=== PATIENT | female | born 1970 | race Hispanic/Latino ===

== ENCOUNTER 2019-02-19 14:17 | Outpatient (CLI) | payer OTHER ==
--- NOTE | 2019-02-19 15:01 | MMO ---
Bilateral MAMMO Bilat Screen [facility]. CLINICAL HISTORY: Patient is 48 years old and is seen for screening. The patient has no family history of breast cancer. The patient has no personal history of cancer. VIEWS: The views performed were: bilateral craniocaudal with tomosynthesis and bilateral mediolateral oblique with tomosynthesis. FILMS COMPARED: The present examination has been compared to a prior imaging study performed at [facility] on 11/22/2011. MAMMOGRAM FINDINGS: The breasts are heterogeneously dense, which could obscure a lesion on mammography. There is a new cluster of calcifications in the left upper outer breast. In the right breast, there are no suspicious masses, calcifications or areas of architectural distortion. IMPRESSION: FINDING IN THE LEFT BREAST REQUIRES ADDITIONAL EVALUATION. MAGNIFICATION VIEWS ARE RECOMMENDED. THE RESULTS OF THIS EXAM WERE SENT TO THE PATIENT. ACR BI-RADS Category 0 - Incomplete: Need additional imaging evaluation. [facility] will notify the patient of the need for additional imaging services. MAMMOGRAPHY NOTE: 1. A negative mammogram report should not delay a biopsy if a dominant of clinically suspicious mass is present. 2. Approximately 10% to 15% of breast cancers are not detected by mammography. 3. Adenosis and dense breasts may obscure an underlying neoplasm. Reported by: ANA CANALES MD Electonically Signed: [id number]
== END 2019-02-19 14:18 | disposition home or self-care (01) ==
LOC: BICMAMMO 14:17
PROVIDERS: ATTEND Family Medicine
DX: Z12.31 Encounter for screening mammogram for malignant neoplasm of breast (principal)
CPT/HCPCS: 77063; 77067

== ENCOUNTER 2019-03-01 14:43 | Outpatient (CLI) | payer OTHER ==
--- NOTE | 2019-03-01 16:00 | MMO ---
Left Breast MAMMO Unilat Diag [facility]. CLINICAL HISTORY: Patient is 48 years old and is seen for additional evaluation requested from prior study. The patient has no family history of breast cancer. The patient has no personal history of cancer. VIEWS: The views performed were: left craniocaudal spot compression magnification; left mediolateral spot compression magnification; and left mediolateral with tomosynthesis. FILMS COMPARED: The present examination has been compared to prior imaging studies performed at [facility] on 11/22/2011, 02/19/2019 and 03/01/2019. MAMMOGRAM FINDINGS: The breast is heterogeneously dense, which could obscure a lesion on mammography. There are coarse heterogeneous and fine pleomorphic calcifications with grouped or clustered distribution seen in the middle upper-inner region of the left breast. IMPRESSION: CALCIFICATIONS IN THE LEFT BREAST ARE SUSPICIOUS. NEEDLE LOCALIZATION AND BIOPSY ARE RECOMMENDED. THE FINDINGS AND RECOMMENDATIONS WERE DISCUSSED WITH THE PATIENT PRIOR TO HER LEAVING THE CENTER. DR. SANCHEZ AT THE OFFICE OF THE PATIENT'S REFERRING PHYSICIAN, KARINA SANCHEZ, WAS NOTIFIED OF THE EXAM RESULTS BY TELEPHONE ON 3:55 PM ON 03/01/2019. THE RESULTS OF THIS EXAM WERE SENT TO THE PATIENT. ACR BI-RADS Category 4 - Suspicious abnormality - biopsy should be considered MAMMOGRAPHY NOTE: 1. A negative mammogram report should not delay a biopsy if a dominant of clinically suspicious mass is present. 2. Approximately 10% to 15% of breast cancers are not detected by mammography. 3. Adenosis and dense breasts may obscure an underlying neoplasm. Reported by: ASHLEY RODRIGUEZ MD Electonically Signed: [id number]
--- NOTE | 2019-03-01 16:02 | ULT ---
LEFT BREAST DIAGNOSTIC ULTRASOUND: 03/01/19 INDICATION: Suspicious cluster of calcifications within the upper outer aspect of the left breast. Ultrasound was performed to evaluate for possible adjacent soft tissue mass. FINDINGS: Simental scale and color Doppler images demonstrate the cluster of shadowing calcifications within the le ft breast 1:30 position 4 cm from the nipple. The suspicious cluster measures approximately 8 mm in w idth and 5 mm in its greatest longitudinal dimension. Depth paige, the cluster measures approximately 6 mm. IMPRESSION: BI-RADS 4: Suspicious Abnormality - Biopsy Should Be Considered Usually requires biopsy. Details concerning the biopsy were fully discussed with the patient concerning possible ultrasound gu ided core biopsy, stereotactic breast biopsy and needle localization with surgical excision. Due to t he size of the patient's left breast and conspicuity of the calcifications by mammogram, recommend th is patient undergo needle localization with surgical excision. Findings were discussed with The patient as well as Dr. Manning by phone at 3:55 p.m. on 03/01/19. Code CR POS: OFF
== END 2019-03-01 14:44 | disposition home or self-care (01) ==
LOC: BICMAMMO 14:43
PROVIDERS: ATTEND Family Medicine
DX: R92.1 Mammographic calcification found on diagnostic imaging of breast (principal)
CPT/HCPCS: G0279

== ENCOUNTER 2019-03-21 07:05 | Day surgery (SDC) | payer OTHER ==
[2019-03-20 17:48] VITALS: BMI 19.2
[2019-03-21] MEDS ORDERED: Lidocaine 1% PF 5 ML VIAL ONE (12:00)
[2019-03-21] MEDS ORDERED: PROPOFOL 200 MG/20 ML VIAL ONE (12:00)
--- NOTE | 2019-03-21 14:20 | MMO ---
MAMMOGRAPHICALLY GUIDED NEEDLE LOCALIZATION 03/21/19 HISTORY: Left breast calcifications. COMPARISON: 03/01/19 FINDINGS: Successful left breast needle localization. A 5 cm Grant needle and wire were advanced such that the wire and needle were through the suspicious calcifications in the upper outer left breast. There were no immediate or postprocedure complications. The films were marked. TECHNIQUE: Consent was obtained to perform a left breast needle localization with mammographic guidance. Left br east was compressed in the CC projection. Skin was prepped and draped in the sterile fashion. 1% lido marita, buffered with sodium bicarbonate was used for local anesthesia. Under mammographic guidance, a 5 cm Grant needle and wire were advanced into the left breast. Needle position was confirmed with re spect to the calcifications. Needle and wire were secured to the patient. No immediate or postprocedu re complications. SURGICAL SPECIMEN RADIOGRAPH: Specimen radiograph demonstrates the calcifications and the Grant wire. Results were conveyed via [facility] Connect to Dr. Mcallister 03/21/19 at 1:17 p.m. IMPRESSION: Successful left breast needle localization. Final pathologic diagnosis pending. Code CR POS: OFF
== END 2019-03-21 14:53 | disposition home or self-care (01) ==
LOC: MAMMO 07:05 → SDC 14:53
PROVIDERS: ATTEND Surgery
PROC: 0HBU3ZX Excision of Left Breast, Percutaneous Approach, Diagnostic (ICD-10-PCS; principal; 2019-03-21)
DX: C50.412 Malignant neoplasm of upper-outer quadrant of left female breast (principal)
CPT/HCPCS: 19281; 76098; 88307; 88341; 88342; J2001; J2704

== ENCOUNTER 2019-04-11 07:45 | Day surgery (SDC) | payer OTHER ==
[2019-04-10 15:17] VITALS: BMI 23.2
[2019-04-11] MEDS ORDERED: Sodium Bicarb 50 MEQ/50 ML Abboject 8.4% SYRINGE ONE (09:00)
--- NOTE | 2019-04-11 09:17 | NM ---
PROCEDURE: Lymphoscintigraphy of the left breast HISTORY: Left breast cancer CORRECTIONAL OFFICER: Alon ANESTHESIA: 3 mL of buffered 1% lidocaine AGENT: 379 uCi of technetium 99 M filtered sulfur colloid TECHNIQUE: The breast was prepped with alcohol in the periareolar region. Lidocaine was used to anest hetize 4 spots surrounding the nipple at the 12:00, 3:00, 6:00, and 9:00 positions. The radiopharmaceutical was then injected in these 4 locations surrounding the nipple. Massage was performed of the breast helping the radiopharmaceutical enter the lymphatics. Images obta ined showed uptake of the radiopharmaceutical within 3 axillary lymph nodes with one being slightly more prominent than the others. IMPRESSION: Left axillary sentinel lymph nodes
[2019-04-11] MEDS ORDERED: Bupivacaine/Epinephrine 0.25% 30 ML VIAL ONE (12:18)
[2019-04-11] MEDS ORDERED: Isosulfan Blue 50 MG/5 ML VIAL ONE (12:18)
[2019-04-11] MEDS ORDERED: Fentanyl 100 MCG/2 ML VIAL ONE (14:07)
[2019-04-11] MEDS ORDERED: Lidocaine 2% PF 5 ML VIAL ONE (14:29)
--- NOTE | 2019-04-11 21:45 | OP ---
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 POSTOPERATIVE DIAGNOSIS: Left breast cancer and DCIS. PROCEDURE PERFORMED: 1. Left re-excision of anterior lumpectomy margin. 2. Left deep axillary node biopsy (sentinel node protocol). ANESTHESIA: General. ESTIMATED BLOOD LOSS: Minimal. COMPLICATIONS: None. SPECIMENS: 1. Left skin anterior and lateral margin re-excision. 2. Left deep axillary node (sentinel node). TECHNIQUE: The patient was taken to the operating room and laid supine on the operating room table after lymphoscintigraphy had been performed, which showed uptake in the left axilla. The breast and axilla were prepped and draped in a sterile fashion. A curved incision was made below the hairline of the left axilla. Neoprobe was used to find the area of increased uptake. 5 mL of methylene blue had been infiltrated under the nipple before the procedure massaged for 10 minutes. A blue node was found to have high counts. The background counts dropped to near zero. The node was sent to Path for final diagnosis. This incision was irrigated and closed using 3-0 Vicryl, 4-0 Monocryl, and Dermabond. Next, the previous left lateral lumpectomy incision is reopened. The incision itself is ellipsed out and sent as final anterior margin just underneath on the lateral aspect of the previous lumpectomy site. An additional lateral margin is sent with stitch on the new margin. The incisions were all irrigated and closed using 3-0 Vicryl, 4-0 Monocryl, and Dermabond. The patient was sent to Recovery in stable condition. All instrument counts, needle counts, and lap counts were correct. Job ID: [id number]
== END 2019-04-11 16:50 | disposition home or self-care (01) ==
LOC: SDC 07:45
PROVIDERS: ATTEND Surgery
PROC: 0HBU0ZZ Excision of Left Breast, Open Approach (ICD-10-PCS; principal; 2019-04-11)
PROC: 07B60ZX Excision of Left Axillary Lymphatic, Open Approach, Diagnostic (ICD-10-PCS; principal; 2019-04-11)
DX: D05.12 Intraductal carcinoma in situ of left breast (principal)
CPT/HCPCS: 78195; 88305; 88307; 88342; A9541; J0690; J2001; J3010; Q9968

== ENCOUNTER 2020-03-07 08:54 | Outpatient (CLI) | payer OTHER ==
--- NOTE | 2020-03-07 09:25 | MMO ---
Bilateral MAMMO Bilat Diag [facility]. CLINICAL HISTORY: Patient is 49 years old and is seen for diagnostic exam. The patient has no family history of breast cancer. The patient has a history of Excisional biopsy procedure revealed invasive ductal left breast carcinoma in March,. The patient has a history of left Lumpectomy in March, - malignant. VIEWS: The views performed were: bilateral craniocaudal with tomosynthesis; bilateral mediolateral oblique with tomosynthesis; and bilateral mediolateral with tomosynthesis. FILMS COMPARED: The present examination has been compared to prior imaging studies performed at [facility] on 11/22/2011, 02/19/2019 and 03/01/2019. This study has been interpreted with the assistance of computer-aided detection. MAMMOGRAM FINDINGS: The breasts are heterogeneously dense, which could obscure a lesion on mammography. There are new post operative changes seen in the left breast. There are no suspicious masses, suspicious calcifications, or suspicious areas of architectural distortion. IMPRESSION: THERE IS NO MAMMOGRAPHIC EVIDENCE OF MALIGNANCY. A ROUTINE FOLLOW-UP MAMMOGRAM IN 1 YEAR IS RECOMMENDED. THE RESULTS OF THIS EXAM WERE SENT TO THE PATIENT. ACR BI-RADS Category 2 - Benign finding MAMMOGRAPHY NOTE: 1. A negative mammogram report should not delay a biopsy if a dominant of clinically suspicious mass is present. 2. Approximately 10% to 15% of breast cancers are not detected by mammography. 3. Adenosis and dense breasts may obscure an underlying neoplasm. Reported by: CLAU PORTILLO MD Electonically Signed: [id number]
== END 2020-03-07 08:55 | disposition home or self-care (01) ==
LOC: BICMAMMO 08:54
PROVIDERS: ATTEND Internal Medicine Hematology & Oncology
DX: C50.112 Malignant neoplasm of central portion of left female breast (principal); Z85.3 Personal history of malignant neoplasm of breast
CPT/HCPCS: 77066; G0279

== ENCOUNTER 2021-04-14 08:21 | Outpatient (CLI) | payer OTHER | END 2021-04-14 08:22 | disposition home or self-care (01) | LOC: BICMAMMO 08:21 | PROVIDERS: ATTEND Internal Medicine Hematology & Oncology | DX: Z08 Encounter for follow-up examination after completed treatment for malignant neoplasm (principal); Z85.3 Personal history of malignant neoplasm of breast | CPT/HCPCS: 77066; G0279 ==

== ENCOUNTER 2022-04-28 08:07 | Outpatient (CLI) | payer OTHER | END 2022-04-28 08:08 | disposition home or self-care (01) | LOC: BICMAMMO 08:07 | PROVIDERS: ATTEND Internal Medicine Hematology & Oncology | DX: C50.112 Malignant neoplasm of central portion of left female breast (principal) | CPT/HCPCS: 77066; G0279 ==

== ENCOUNTER 2025-06-27 13:32 | Outpatient (CLI) | payer OTHER | END 2025-06-27 13:33 | disposition home or self-care (01) | LOC: BICMAMMO 13:32 | PROVIDERS: ATTEND Family Medicine | DX: Z12.31 Encounter for screening mammogram for malignant neoplasm of breast (principal); Z85.3 Personal history of malignant neoplasm of breast; Z98.890 Other specified postprocedural states | CPT/HCPCS: 77063; 77067 ==